=== PATIENT | female | born 1965 | race Caucasian/White ===

== ENCOUNTER 2016-07-10 22:23 | Emergency (ER) | payer BC ==
[2016-07-10] MEDS ORDERED: AMOX TR/POTASSIUM CLAVULANATE 875 MG TABLET PO ONE (23:14)
[2016-07-10] MEDS ORDERED: AMOX TR/POTASSIUM CLAVULANATE 875 MG TABLET ONE (23:15)
--- NOTE | 2016-07-10 23:16 | ERNOTE ---
Date of Service: 07/10/16 Time Seen by Provider: 07/10/16 22:42 Stated Complaint: FEVER/CHILLS Presenting Symptoms:: runny nose Source: patient Immunizations: IMMUNIZATION HX Immunizations Up to Date No History of Influenza Vaccine Yes Hx Pneumococcal Vaccination No Allergies/Adverse Reactions: Allergies No Known Drug Allergies Allergy (Verified 07/10/16 22:33) Home Medications: HOME MEDICATIONS Amox Tr/Potassium Clavulanate [Augmentin 875-125 Tablet] 875 mg PO Q12H #20 tab 07/10/16 [Last Taken Unknown] Meloxicam [Mobic] 15 mg PO DAILY 07/10/16 [Last Taken Unknown] Methimazole [Tapazole] 15 mg PO DAILY 07/10/16 [Last Taken Unknown] - History of Present Ilness Narrative: 51 year old that has been having sinus pressure, post nasal drip, coughing, nasal discharge intermittently, and feeling fatigued for the last 1.5 weeks. Denies any fever, chills, pain or dyspnea. Timing: constant Severity: moderate Frequency/Possible Cause: Reports: no prior episodes Modifying Factors - Improves: Reports: other - nothing Modifying Factors - Worsens: Reports: other - nothing Associated Symptoms: Reports: denies symptoms Review of Systems - Review of Systems Constitutional: Present: no symptoms reported EYE: Present: no symptoms reported ENT: Present: nasal drainage Respiratory: Present: no symptoms reported Cardiology: Present: no symptoms reported Gastrointestinal/Abdominal: Present: no symptoms reported Genitourinary: Present: no symptoms reported Musculoskeletal: Present: no symptoms reported Skin: Present: no symptoms reported Neurological: Present: no symptoms reported Endocrine: Present: no symptoms reported Hematologic/Lymphatic: Present: no symptoms reported - Patient's Past Medical History Patient History - Medical: Other Patient History - Cardiac/Respiratory: No pertinent hx Patient History - Cancer: No Hx of Cancer Patient History - Surgical Procedures: , Tubal Ligation, T & A, Other Patient History - Other: None LMP (females 10-50): Menopausal - Social History Living Situations: home Psych History: No pertinent hx Smoking Status: Current every day smoker Alcohol Use: rarely Drug Use: none - Immunizations Immunizations Up to Date: No Hx Pneumococcal Vaccination: No History of Influenza Vaccine: Yes Physical Exam - Physical Exam General Appearance: Present: no apparent distress Eye Exam: Normal inspection: bilateral Ears, Nose, Throat: Present: sinus pain/drainage Neck: Present: normal inspection Respiratory: Present: no respiratory distress Cardiovascular/Chest: Present: regular rate, rhythm Gastrointestinal/Abdominal: Present: nontender Back Exam: Present: normal inspection Extremity Exam: Present: normal inspection Neurological Exam: Present: alert, oriented, normal mood/affect, zipper measurer II-XII nml as tested Skin Exam: Present: normal color ED Progress - Vital Signs Patient's Vital Signs:: I have reviewed the patient's vital signs. Vital Signs: Vital Signs 07/10/16 22:28 Temperature 36.2 C L Pulse Rate 66 Respiratory 18 Rate Blood Pressure 135/71 O2 Sat by Pulse 100 Oximetry - Progress/Reassessment Chief Complaint: Upper Respiratory Symptoms Departure - Departure Clinical Impression: Acute bacterial sinusitis Disposition: Home self-care Condition: Good Instructions: Sinusitis, Adult, [id number] Print Language: Azeri Additional Instructions: Sinus rinses as needed. Drink lots of water. Stop smoking. Prescriptions: Amox Tr/Potassium Clavulanate [Augmentin 875-125 Tablet] 875 mg PO Q12H #20 tab
[2016-07-11 06:21] VITALS: BP 115/46
== END 2016-07-10 23:21 | disposition home or self-care (01) ==
LOC: ER 22:23
DX: J01.90 Acute sinusitis, unspecified (principal); B96.89 Other specified bacterial agents as the cause of diseases classified elsewhere; F17.210 Nicotine dependence, cigarettes, uncomplicated